=== PATIENT | female | born 1955 | race Caucasian/White ===

== ENCOUNTER 2018-01-26 07:38 | Day surgery (SDC) | payer BC, OTHER ==
[2018-01-20 09:46] VITALS: BMI 21.2
[2018-01-26] MEDS ORDERED: PROPOFOL 20 ML ONE ×2 (07:51)
[2018-01-26 10:56] VITALS: TEMP 98.4
[2018-01-26 11:01] VITALS: BP 102/54; PULSE 57
--- NOTE | 2018-01-28 11:27 | PATH ---
Surgical Pathology Report Patient Name: HUAN ROCA [facility]. Rec. #: [id number] /Age/Gender: 1955 (Age: 62) / F Account: [id number] Location: [facility] Taken: 01/26/2018 Received: 01/26/2018 Reported: 01/28/2018 Physicians: Lance Morataya M.D. Specimen(s) Received HEPATIC FLEXURE Clinical History polyp Final Diagnosis HEPATIC FLEXURE, BIOPSY: TUBULAR ADENOMA. Electronically Signed Tori Dhaliwal M.D. Gross Description Received in formalin, labeled "hepatic flexure" are three pieces of matos tissue ranging from 0.2-0.5 cm in greatest dimension. Entirely submitted one cassette. ebram/01/26/2018
== END 2018-01-26 09:45 | disposition home or self-care (01) ==
LOC: FASU-ENDO 07:38
PROVIDERS: ATTEND Internal Medicine Gastroenterology
PROC: 0DBL8ZX Excision of Transverse Colon, Via Natural or Artificial Opening Endoscopic, Diagnostic (ICD-10-PCS; principal; 2018-01-26 08:37)
DX: Z12.11 Encounter for screening for malignant neoplasm of colon (principal); D12.3 Benign neoplasm of transverse colon
CPT/HCPCS: 88305-TC